=== PATIENT | male | born 1995 | race Caucasian/White ===

== ENCOUNTER 2018-05-27 03:00 | Emergency (ER) | payer OTHER ==
[2018-05-27 03:10] VITALS: RESP 17; TEMP 98.4; O2SAT 100
[2018-05-27] MEDS ORDERED: TDAP Vaccine 0.5 mL Syr IM ONE (03:13)
--- NOTE | 2018-05-27 03:14 | ED PDOC ---
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 Patient states he was opening his lunch at work and cut his finger. Patient denies any fever, chills, numbness, headache, dizziness, or any other complaint. Time/Duration: Prior to Arrival Activities at Onset: Light Context: Work Past Medical History - Provider Review Nursing Documentation Reviewed: Yes - Infectious Disease Hx of Infectious Diseases: None - Cardiac Hx Cardiac Disorders: No - Psychiatric Hx Substance Use: No - Anesthesia Hx Anesthesia: No Family/Social History - Physician Review Nursing Documentation Reviewed: Yes Family/Social History: Unknown Family HX Smoking Status: Never Smoked Hx Alcohol Use: Yes Frequency of alcohol use: Socially Hx Substance Use: No Allergies/Home Meds Allergies/Adverse Reactions: Allergies No Known Allergies Allergy (Verified 05/27/18 03:07) Home Medications: Home Meds Medication Instructions Recorded Confirmed No Known Home Med 05/27/18 05/27/18 Review of Systems - Physician Review All systems were reviewed & negative as marked: Yes - Review of Systems Constitutional: Normal Eyes: Normal ENT: Normal Respiratory: Normal. absent: SOB, Cough Cardiovascular: Normal. absent: Chest Pain Gastrointestinal: Normal. absent: Abdominal Pain Genitourinary Male: Normal. absent: Dysuria, Frequency Musculoskeletal: Normal. absent: Back Pain, Neck Pain Skin: Laceration (index finger of rt hand). absent: Rash Neurological: Normal. absent: Headache, Dizziness Endocrine: Normal Hemo/Lymphatic: Normal Psychiatric: Normal Physical Exam - Physical Exam Narrative Physical Exam (Text): 05/27/18 03:14 Gen: VS reviewed, alert, well developed, well nourished, nontoxic, mild distress. ENT: normal pharynx. Eye: EOMI, PERRL. Neck: no JVD, supple, no adenopathy. CV: regular rate, regular rhythm, no rubs, no murmur, no gallops, S1, S2, pulses equal and strong. Pulm: no distress, clear to auscultation, no wheeze, no rhonchi, breath sounds equal, no rales. Abd: soft, nontender, no guarding, no rebound, no rigidity, normal bowel sounds. Ext: no edema. Skin: laceration index finger rt hand, no rash, no cyanosis. Psych: responds appropriately to questions, normal affect. Neuro: oriented x 3, CN2-12 intact grossly, motor intact, sensation intact. Vital Signs Reviewed: Yes Vital Signs Temp Pulse Resp BP Pulse Ox 05/27/18 03:09 98.4 F 86 17 145/89 100 Temperature: Afebrile Blood Pressure: Normal Pulse: Regular Respiratory Rate: Normal Appearance: Positive for: Well-Appearing, Non-Toxic, Comfortable Pain Distress: None Mental Status: Positive for: Alert and Oriented X 3 Medical Decision Making ED Course and Treatment: 05/27/18 03:14 Impression: 22 year old male presents to the emergency department complaining of a cut to the index finger of rt hand. Plan: -- Reassess and disposition Progress Notes: 05/27/18 03:47 simple finger laceration, minimal bleeding upon arrival. hemostasis good without intervention and period of observation. antibiotic ointment bandage applied by myself. no bleeding observed. tetanus updated. patient understood and agreed with plan no defer sutures at this time. - Medication Orders Current Medication Orders: Discontinued Medications Tetanus/Reduced Diphtheria/Acell Pertussis (Boostrix Vaccine Inj) 0.5 ml IM .ONCE ONE Stop: 05/27/18 03:14 Last Admin: 05/27/18 03:35 Dose: 0.5 ml Immunization Registry Document 05/27/18 03:35 PAUL (Rec: 05/27/18 03:36 PAUL [id number]) Immunization Registry Consent Date 05/27/18 - Scribe Statement The provider has reviewed the documentation as recorded by the Scribe Alma Cabrera All medical record entries made by the Scribe were at my direction and personally dictated by me. I have reviewed the chart and agree that the record accurately reflects my personal performance of the history, physical exam, medical decision making, and the department course for this patient. I have also personally directed, reviewed, and agree with the discharge instructions and disposition. Disposition/Present on Arrival - Present on Arrival Any Indicators Present on Arrival: No History of DVT/PE: No History of Uncontrolled Diabetes: No Urinary Catheter: No History of Decub. Ulcer: No History Surgical Site Infection Following: None - Disposition Have Diagnosis and Disposition been Completed?: Yes Diagnosis: Finger laceration Disposition: HOME/ ROUTINE Disposition Time: 03:49 Patient Plan: Discharge Patient Problems: Current Active Problems Problem Status Onset Finger laceration Acute Condition: STABLE Discharge Instructions (ExitCare): Wound Care Print Language: SOU[place] Additional Instructions: the cut on the finger should not bleed. if it does, simply apply direct pressure for 5 minutes. if bleeding continues despite holding pressure, return to possibly get stitches. YASMIN BROTHERS, thank you for letting us take care of you today. Your provider was Dr. Gil Kirkland and you were treated for cut on finger ( laceration). The emergency medical care you received today was directed at your acute symptoms. If you were prescribed any medication, please fill it and take as directed. It may take several days for your symptoms to resolve. Return to the Emergency Department if your symptoms worsen, do not improve, or if you have any other problems. Please contact your doctor or call one of the physicians/clinics you have been referred to that are listed on the Patient Visit Information form that is included in your discharge packet. Bring any paperwork you were given at discharge with you along with any medications you are taking to your follow up visit. Our treatment cannot replace ongoing medical care by a primary care provider outside of the emergency department. Thank you for allowing the [facility] team to be part of your care today. If you had an X-Ray or CT scan: A Radiologist will review the ED reading if any change in treatment is needed we will contact you. If you had a blood, urine, or wound culture: It will take several days for the results, if any change in treatment is needed we will contact you. If you had an STI test: It will take 48 hours for the results. Please call after 1 week if you have not heard back. Forms: [email or web address] ([place]rian), WORK NOTE
[2018-05-27] MEDS ORDERED: Bacitracin 500 Units/gm Oint Foilpak UD ONE (03:40)
[2018-05-27 03:53] VITALS: BP 135/84; PULSE 82
== END 2018-05-27 03:50 | disposition home or self-care (01) ==
LOC: ED 03:00
DX: S61.210A Laceration without foreign body of right index finger without damage to nail, initial encounter (principal); W45.8XXA Other foreign body or object entering through skin, initial encounter; Y92.89 Other specified places as the place of occurrence of the external cause; Z23 Encounter for immunization